=== PATIENT | female | born 1980 | race Caucasian/White ===

== ENCOUNTER 2018-09-06 20:39 | Emergency (ER) | payer OTHER ==
[2018-09-06] MEDS ORDERED: MAG HYDROX/AL HYDROX/SIMETH 30 ML UNIT-DOSE CUP PO ONE (20:54)
[2018-09-06] MEDS ORDERED: ONDANSETRON *ODT* 4 MG TABLET SL ONE (20:54)
--- NOTE | 2018-09-06 20:54 | PDOC ---
Rapid Medical Evaluation Chief Complaint: Pain Time Seen by Provider: 09/06/18 20:51 Medical Evaluation: 09/06/18 20:51 I have performed a brief in-person evaluation of this patient. The patient presents with a chief complaint of: h/o lactose intolerance presenting with complains of sudden onset of worsening epigastric pain with vomiting and diarrhea after eating ice cream this evening Pertinent physical exam findings: Pt in moderate distress hold on to epigastric area I have ordered the following: zofran, maalox, cbc, cmp, lipase, uhcg The patient will proceed to the ED for further evaluation. Discharge Disposition - Diagnosis Abdominal pain Qualifiers: Abdominal location: epigastric Qualified Code(s): R10.13 - Epigastric pain - Discharge Dispostion Condition at time of disposition: Stable - Referrals - Patient Instructions - Post Discharge Activity
[2018-09-06 20:55] VITALS: BMI 26.6
[2018-09-06] MEDS ORDERED: MAG HYDROX/AL HYDROX/SIMETH 30 ML UNIT-DOSE CUP ONE ×2 (20:58→23:10)
[2018-09-06] MEDS ORDERED: SODIUM CHLORIDE 0.9% 500 ML INFUS.BAG IV ONE (22:58)
[2018-09-06] MEDS ORDERED: ACETAMINOPHEN 1000 MG/100 ML VIAL (NON FORMULARY) IVPB ONE (22:58)
--- NOTE | 2018-09-06 23:05 | PDOC ---
History of Present Illness - General Chief Complaint: Pain Stated Complaint: STOMACH PAIN Time Seen by Provider: 09/06/18 20:51 - History of Present Illness Initial Comments: Ms. Duarte is a 37F with no significant PMH, presenting with right abdominal pain that started around 3 hours ago. Reports that she had a variety of foods for dinner including ice cream and subsequently began experiencing pain in the right upper quadrant. Also reports bilateral lower abdominal pain. Reports that the pain is constant and radiates to the back and chest. States that the pain has been constant. Reports urinating on herself x3 due to the pain. Denies fever. Reports nausea but no vomiting. Reports some diarrhea, no blood in the stools. FamHx: mom had gallstones Past History - Past Medical History Allergies/Adverse Reactions: Allergies Allergy/AdvReac Type Severity Reaction Status Date / Time lactose Allergy Verified 09/06/18 20:55 Home Medications: Ambulatory Orders NK [No Known Home Medication] 09/06/18 COPD: No - Suicide/Smoking/Psychosocial Hx Smoking History: Never smoked Review of Systems - Review of Systems Comments:: ROS GENERAL/CONSTITUTIONAL: No fever or chills. No weakness._ HEAD, EYES, EARS, NOSE AND THROAT: No change in vision. No ear pain or discharge. No sore throat._ CARDIOVASCULAR: No chest pain or shortness of breath_ RESPIRATORY: Denies cough, hemoptysis_ GASTROINTESTINAL: Reports nausea. No vomiting. Reports diarrhea. No constipation. GENITOURINARY: No dysuria, no hematuria. No vaginal bleeding or discharge. Reports incontinence. MUSCULOSKELETAL: No joint or muscle swelling or pain. No neck or back pain._ SKIN: No rash. NEUROLOGIC: No headache, vertigo, loss of consciousness, or change in strength/ sensation._ ENDOCRINE: No increased thirst. No abnormal weight change_ HEMATOLOGIC/LYMPHATIC: No anemia, easy bleeding, or history of blood clots._ ALLERGIC/IMMUNOLOGIC: No hives or skin allergy._ *Physical Exam - Vital Signs Last Vital Signs Temp Pulse Resp BP Pulse Ox 97.8 F 97 H 18 150/106 H 98 09/06/18 20:51 09/06/18 20:51 09/06/18 20:51 09/06/18 20:51 09/06/18 20:51 - Physical Exam Comments: GENERAL: Awake, alert, and oriented to person/place/time, in no acute distress_ HEAD: No signs of trauma, normocephalic, atraumatic _ EYES: PERRLA, EOMI, sclera anicteric, conjunctiva clear_ ENT: Hearing grossly normal, nares patent, oropharynx clear without exudates. No uvular deviation. Moist mucosa_ NECK: Normal ROM, supple, no lymphadenopathy, JVD, or masses_ LUNGS: No distress, speaks in full sentences, clear to auscultation bilaterally _ HEART: Regular rate and rhythm, normal S1 and S2, no murmurs appreciated, peripheral pulses normal and equal bilaterally._ ABDOMEN: Soft. TTP RUQ. Diffuse tenderness to bilateral lower quadrants. No rebound, no guarding. PELVIC: Physiological discharge around cervix. No cervical motion tenderness. No adenxal tenderness. No bleeding noted on exam. EXTREMITIES: Normal inspection, Normal range of motion, no edema. No clubbing or cyanosis_ NEUROLOGICAL: Cranial nerves II through XII grossly intact. Normal speech, normal gait, no focal sensorimotor deficits _ SKIN: Warm, Dry, normal turgor, no rashes or lesions noted_ ED Treatment Course - LABORATORY CBC & Chemistry Diagram: 09/06/18 23:00 09/06/18 23:00 - Medications Given in the ED: ED Medications Discontinued Medications Generic Name Dose Route Start Last Admin Trade Name Samq PRN Reason Stop Dose Admin Al Hydroxide/Mg Hydroxide 30 ml 09/06/18 20:54 09/06/18 21:02 Mylanta Oral Suspension - PO 09/06/18 20:55 30 ml ONCE ONE Administration Ondansetron HCl 4 mg 09/06/18 20:54 09/06/18 21:02 Zofran Odt - SL 09/06/18 20:55 4 mg ONCE ONE Administration Medical Decision Making - Medical Decision Making 09/06/18 2330 37F with famHx of gallstones presenting with RUQ pain that started after dinner tonight around 7pm. Pain radiates to the back and to the chest. Also has bilateral lower quadrant tenderness. Plan to obtain CBC, CMP, lipase, UA, urine test. DDx includes cholelithiasis vs cholecystitis vs ectopic vs appendicits. 09/07/18 02:28 Urine test negative. No hx of ovarian cysts. UA negative. WBC elevated. POCUS gallbladder shows no cholelithiasis, choledocholithiasis, or cholecystitis. Plan to obtain CT abd/pelv with IV contrast. 09/07/18 04:38 CT abd pelv shows small stone in the gallbladder neck/duct and 3.2 cm left ovarian cyst. PO challenge. 09/07/18 05:27 Patient is well appearing and resting comfortably with tylenol after PO challenge. Plan to d/c. F/u general surgery for biliary colic, OBGYN and HIRAM for ovarian cyst. Return precautions given. *DC/Admit/Observation/Transfer Diagnosis at time of Disposition: Abdominal pain Qualifiers: Abdominal location: epigastric Qualified Code(s): R10.13 - Epigastric pain - Discharge Dispostion Disposition: HOME Condition at time of disposition: Stable Decision to Admit order: No - Referrals Referrals: Marques Yost MD [Staff Physician] - - Patient Instructions Printed Discharge Instructions: DI for Gallstones, DI for Biliary Colic Additional Instructions: Please take Tylenol as needed for your pain (follow instructions on the package ) and avoid fatty or heavy foods where possible. Please make an appointment with a general surgeon (Dr. Yost) to address the symptoms of the gallstone. Please follow up with your OBGYN for the left ovarian cyst. If you experience any new, worsening, or concerning symptoms, including severe nausea/vomiting, abdominal pain that is not relieved with Tylenol, fever, blood in vomit or stool, or any other concerns, please return to the emergency room. - Post Discharge Activity Forms/Work/School Notes: Back to Work
[2018-09-06] MEDS ORDERED: ONDANSETRON 4 MG TABLET PO ONE (23:09)
[2018-09-06] MEDS ORDERED: ACETAMINOPHEN INJECTION 100 ML IVPB ONE (23:10)
[2018-09-06] MEDS ORDERED: ONDANSETRON 4 MG/2 ML VIAL ONE (23:10)
[2018-09-06] MEDS ORDERED: FAMOTIDINE 20 MG/50 ML IVPB 20 MG/50 ML MG IVPB ONE (23:10)
[2018-09-06 23:17] LABS: BASO % 0.4 % (0-2.0); EOS % 0.6 % (0-4.5); HEMATOCRIT 38.8 % (32.4-45.2); HEMOGLOBIN 12.7 GM/dL (10.7-15.3); LYMPH % 17.9 % (8-40); MCHC 32.8 g/dl (32.0-36.0); MEAN CELL VOLUME 76.2 fl (80-96); MEAN PLT VOLUME 9.6 fl (7.5-11.1); MONO % 7.5 % (3.8-10.2); NEUT % 73.6 % (42.8-82.8); PLATELET COUNT 220 K/MM3 (134-434); RDW 14.3 % (11.6-15.6); WHITE BLOOD COUNT 13.6 K/mm3 (4.0-10.0)
[2018-09-06 23:48] LABS: ALBUMIN 3.3 g/dl (3.4-5.0); BILIRUBIN,TOTAL 0.5 mg/dL (0.2-1); BLOOD UREA NITROGEN 13.1 mg/dL (7-18); CALCIUM 8.7 mg/dL (8.5-10.1); CREATININE 0.8 mg/dL (0.55-1.3); POTASSIUM 4.7 mmol/L (3.5-5.1); TOT PROT 7.2 g/dl (6.4-8.2)
--- NOTE | 2018-09-07 00:04 | PDOC ---
Attending Attestation - Resident Resident Name: Peter Galicia - ED Attending Attestation I have performed the following: I have examined & evaluated the patient, The case was reviewed & discussed with the resident, I agree w/resident's findings & plan, Exceptions are as noted - HPI HPI: 09/07/18 00:03 37 yo F with co abd pain. started rlq, radiating up to upper abd and back. started this evening. felt she was going to have a bowel movment, had diarrhea shortly folowing. then pain persistaed for abou 1 hour. had recurrent episode few hours later. pt has no n/v no urinary complaints. but urgency. no dysuria. no hematuria. family h/o gallstones mother, no renal colic. no other complaints. no h/o ovarian cyst. - Physicial Exam PE: 09/07/18 01:57 awake alert lungs clear bilat heart rrr no mrg abd soft mild rlq ttp. no rebound no guaurding. no cva tenderness. suprapubic ttp. ext wwp no edema. no calf tenderness. - Medical Decision Making 09/07/18 01:57 37 yo F rlq pain differential ovarian cyst rupture, uti renal colic, biliary colic, appendicitis. plan ua labs ct a/p focused eD RUQ us. focused ed ruq sono, no stones, normal wall thickening. normal cbd. neg sonographic gaitan's see report. plan ct a/p 09/07/18 04:[address] norml appendix. small 3.2 left ovarian cyst small gallstone in neck, pt feels pain free. will give trial po. pelvic exam scant whitish dc in vault. no dmt. no adnexal tenderness. plan trial po if no pain dc home surgery fu and gi followup.
[2018-09-07 00:07] VITALS: BP 116/67; PULSE 78; TEMP 97.9
[2018-09-07 00:24] LABS: PH,URINE 7.5 (5.0-8.0); URINE APPEARANCE CLEAR; URINE BILIRUBIN NEGATIVE (NEGATIVE); URINE COLOR YELLOW; URINE GLUCOSE (UA) NEGATIVE (NEGATIVE); URINE KETONE NEGATIVE (NEGATIVE); URINE LEUK ESTERASE NEGATIVE (NEGATIVE); URINE NITRITE NEGATIVE (NEGATIVE); URINE PROTEIN NEGATIVE (NEGATIVE)
[2018-09-07] MEDS ORDERED: ACETAMINOPHEN 1000 MG/100 ML VIAL (NON FORMULARY) IVPB ONE (04:53)
[2018-09-07] MEDS ORDERED: ACETAMINOPHEN INJECTION 100 ML IVPB ONE (05:07)
== END 2018-09-07 06:09 | disposition home or self-care (01) ==
LOC: JER 20:39
PROC: 3E033NZ Introduction of Analgesics, Hypnotics, Sedatives into Peripheral Vein, Percutaneous Approach (ICD-10-PCS; principal; 2018-09-06)
PROC: BF42ZZZ Ultrasonography of Gallbladder (ICD-10-PCS; 2018-09-06)
DX: R10.13 Epigastric pain (principal); N83.202 Unspecified ovarian cyst, left side; K80.20 Calculus of gallbladder without cholecystitis without obstruction
CPT/HCPCS: 36415; 74177-TC; 76705-TC; 80053; 81003; 83690; 84703; 85025; 87086; 99283-25; J0131; Q0162